=== PATIENT | male | born 1990 | race Caucasian/White ===

== ENCOUNTER 2017-11-27 15:00 | Emergency (ER) | payer OTHER ==
[~2017-11-27] VITALS: Ht 175.3 cm; Wt 81.7 kg
[2017-11-27] MEDS ORDERED: BENADRYL25 MG PO (15:12)
[2017-11-27] MEDS ORDERED: TESSALON PERLE100 MG PO (16:12)
[2017-11-27] MEDS ORDERED: ZPAK PO (16:12)
[2017-11-27 16:19] VITALS: BP 128/89
== END 2017-11-27 16:21 | disposition home or self-care (01) ==
LOC: M.ERS 15:00
DX: J40 Bronchitis, not specified as acute or chronic (principal); J32.9 Chronic sinusitis, unspecified; Z88.8 Allergy status to other drugs, medicaments and biological substances

== ENCOUNTER 2018-11-25 21:28 | Emergency (ER) | payer OTHER ==
[~2018-11-25] VITALS: Ht 175.3 cm; Wt 77.1 kg
[~2018-11-25 21:28] MED LIST: BENADRYL25 MG PO; TESSALON PERLE100 MG PO; ZPAK PO
[2018-11-25 22:40] VITALS: BP 124/82
== END 2018-11-25 22:41 | disposition home or self-care (01) ==
LOC: M.ERS 21:28
DX: M25.521 Pain in right elbow (principal); Z88.8 Allergy status to other drugs, medicaments and biological substances; V89.2XXA Person injured in unspecified motor-vehicle accident, traffic, initial encounter; Y93.89 Activity, other specified; Y92.89 Other specified places as the place of occurrence of the external cause; Y99.8 Other external cause status

== ENCOUNTER 2020-09-21 17:22 | Emergency (ER) | payer OTHER ==
[~2020-09-21] VITALS: Ht 175.3 cm; Wt 77.1 kg
[2020-09-21 18:41] LABS: ABSOLUTE BASOPHILS 0.1 thou/uL (0.0-0.2); ABSOLUTE EOSINOPHILS 0.2 thou/uL (0.0-0.7); ABSOLUTE LYMPHOCYTES 2.4 thou/uL (0.8-5.3); ABSOLUTE MONOCYTES 0.5 thou/uL (0.0-1.2); ABSOLUTE NEUTROPHILS 7.3 thou/uL (1.6-8.1); BASOPHILS 0.6 %; EOSINOPHILS 1.5 %; HEMATOCRIT 42.6 % (42.0-52.0); HEMOGLOBIN 14.6 gm/dL (14.0-18.0); LYMPHOCYTES 22.9 %; MCH 30.8 pg (26.0-34.0); MCHC 34.3 g/dL (28.0-37.0); MCV 89.9 fL (80.0-100.0); MONOCYTES 4.7 %; MPV 7.4 fl. (7.2-11.1); NUCLEATED RBCS 0 /100WBC; PLATELET COUNT* 330 thou/uL (150-400); POLYS 70.3 %; RBC 4.74 mil/uL (4.50-6.00); RDW-CV 13.5 % (10.5-14.5); WBC 10.4 thou/uL (4.0-11.0)
[2020-09-21 18:53] LABS: CALCIUM 8.4 mg/dL (8.5-10.1); CREATININE 0.9 mg/dL (0.6-1.3)
[2020-09-21 19:04] LABS: ALBUMIN 4.3 g/dL (3.4-5.0); MAGNESIUM 1.9 mg/dL (1.8-2.4); TOTAL BILIRUBIN 0.4 mg/dL (<0.1-1.0); TOTAL PROTEIN 7.1 g/dL (6.4-8.2)
[2020-09-21] MEDS ORDERED: ATIVAN0.5 M1 PO (20:17)
[2020-09-21 20:33] VITALS: BP 129/85
--- NOTE | 2020-09-23 12:44 | EKG ---
[place] [address] ELECTROCARDIOGRAM REPORT Name: DAV HALE Room: [facility]#: [id number] Admission: 09/21/20 Attend Phys: Discharge: 09/21/20 Date of : 88 Date of Service: 09/21/201726 Report #: [id number] THIS REPORT FOR: //name// [facility] ED Test Date: 2020-09-21 Test Time: 17:27:58 Pat Name: DAV HALE Department: Room: Gender: [employer]: [facility] : 1990 Requested By: Lana Alex Order Number: [id number] MD: Timbo Sykes Measurements Intervals [place] Rate: 104 P: 58 WI: 136 QRS: 44 QRSD: 100 T: 43 QT: 339 QTc: 446 Interpretive Statements Sinus tachycardia No previous ECG available for comparison Electronically Signed On 09-23-2020 12:44:10 CDT by Timbo Sykes [email or web address] <ELECTRONICALLY SIGNED> By: Timbo Sykes MD, [facility] 09/23/20 1244 26 26 Timbo Sykes MD, FACC /EPI
== END 2020-09-21 20:34 | disposition home or self-care (01) ==
LOC: M.ERS 17:22
PROVIDERS: Nurse Practitioner Family
DX: F41.9 Anxiety disorder, unspecified (principal); R07.89 Other chest pain

== ENCOUNTER 2020-11-07 17:21 | Emergency (ER) | payer OTHER ==
[~2020-11-07] VITALS: Ht 175.3 cm; Wt 72.6 kg
[~2020-11-07 17:21] MED LIST changes: +ATIVAN0.5 M1 PO
[2020-11-07] MEDS ORDERED: IBUPROFEN 800800 M1 PO (18:41)
[2020-11-07] MEDS ORDERED: FLEXERIL PO (18:41)
[2020-11-07 19:01] VITALS: BP 136/89
== END 2020-11-07 19:01 | disposition home or self-care (01) ==
LOC: M.ERS 17:21
DX: S39.012A Strain of muscle, fascia and tendon of lower back, initial encounter (principal); Z88.8 Allergy status to other drugs, medicaments and biological substances; W10.8XXA Fall (on) (from) other stairs and steps, initial encounter; Y93.89 Activity, other specified; Y92.89 Other specified places as the place of occurrence of the external cause; Y99.8 Other external cause status

== ENCOUNTER 2020-11-18 14:32 | Emergency (ER) | payer OTHER ==
[~2020-11-18] VITALS: Ht 144.8 cm; Wt 72.6 kg
[~2020-11-18 14:32] MED LIST changes: +FLEXERIL PO; +IBUPROFEN 800800 M1 PO
[2020-11-18 15:19] LABS: ABSOLUTE EOSINOPHILS 0.3 thou/uL (0.0-0.7); ABSOLUTE LYMPHOCYTES 2.4 thou/uL (0.8-5.3); ABSOLUTE MONOCYTES 0.5 thou/uL (0.0-1.2); ABSOLUTE NEUTROPHILS 5.3 thou/uL (1.6-8.1); BASOPHILS 0.5 %; HEMATOCRIT 42.7 % (42.0-52.0); HEMOGLOBIN 14.4 gm/dL (14.0-18.0); LYMPHOCYTES 28.5 %; MCH 30.6 pg (26.0-34.0); MCHC 33.8 g/dL (28.0-37.0); MCV 90.5 fL (80.0-100.0); MONOCYTES 6.2 %; MPV 7.3 fl. (7.2-11.1); NUCLEATED RBCS 0 /100WBC; PLATELET COUNT* 308 thou/uL (150-400); POLYS 61.8 %; RBC 4.72 mil/uL (4.50-6.00); RDW-CV 13.3 % (10.5-14.5); WBC 8.5 thou/uL (4.0-11.0)
[2020-11-18 15:30] LABS: CALCIUM 8.4 mg/dL (8.5-10.1); CREATININE 0.9 mg/dL (0.6-1.3); POTASSIUM 3.7 mmol/L (3.5-5.1)
[2020-11-18 15:34] LABS: ALBUMIN 4.1 g/dL (3.4-5.0); TOTAL BILIRUBIN 0.3 mg/dL (<0.1-1.0); TOTAL PROTEIN 6.7 g/dL (6.4-8.2)
[2020-11-18 16:27] VITALS: BP 121/70
== END 2020-11-18 16:28 | disposition home or self-care (01) ==
LOC: M.ERS 14:32
PROVIDERS: Physician Assistant
DX: R56.9 Unspecified convulsions (principal); R51.9 Headache, unspecified; R53.83 Other fatigue; R41.0 Disorientation, unspecified; M25.511 Pain in right shoulder; F41.9 Anxiety disorder, unspecified; F17.210 Nicotine dependence, cigarettes, uncomplicated; Z88.8 Allergy status to other drugs, medicaments and biological substances

== ENCOUNTER 2020-12-17 18:05 | Emergency (ER) | payer OTHER ==
[~2020-12-17] VITALS: Ht 175.3 cm; Wt 77.1 kg
[2020-12-17 18:19] VITALS: BP 121/79
[2020-12-17] MEDS ORDERED: DOXYCYCLINE 10100 MG PO (19:12)
[2020-12-17] MEDS ORDERED: APAP W/CODEINE1 TA2 PO (19:17)
== END 2020-12-17 20:56 | disposition home or self-care (01) ==
LOC: M.ERS 18:05
DX: L02.11 Cutaneous abscess of neck (principal); F41.9 Anxiety disorder, unspecified; Z88.8 Allergy status to other drugs, medicaments and biological substances

== ENCOUNTER 2021-02-22 13:51 | Emergency (ER) | payer OTHER ==
[~2021-02-22] VITALS: Ht 170.2 cm; Wt 81.7 kg
[~2021-02-22 13:51] MED LIST changes: +APAP W/CODEINE1 TA2 PO; +DOXYCYCLINE 10100 MG PO
[2021-02-22 14:41] LABS: INFLUENZA A ANTIGEN Negative (Negative); INFLUENZA B ANTIGEN Negative (Negative)
[2021-02-22 15:13] VITALS: BP 104/55
== END 2021-02-22 15:13 | disposition home or self-care (01) ==
LOC: M.ERS 13:51
PROVIDERS: Nurse Practitioner Family
DX: U07.1 COVID-19 (principal); F41.9 Anxiety disorder, unspecified; Z88.8 Allergy status to other drugs, medicaments and biological substances